=== PATIENT | female | born 1990 | race Caucasian/White ===

== ENCOUNTER 2020-06-27 14:55 | Inpatient (IN) | payer OTHER ==
[2020-06-27] MEDS ORDERED: Ibuprofen 800 MG TAB PO PRN (15:45)
[2020-06-27] MEDS ORDERED: Lactated Ringer's 1,000 ML IV SCH ×2 (15:45)
[2020-06-27] MEDS ORDERED: Acetaminophen 500 MG TAB PO PRN (15:45)
[2020-06-27] MEDS ORDERED: Butorphanol Tartrate 1 MG/ML VIAL SLOW IVP PRN (15:45)
[2020-06-27] MEDS ORDERED: Ondansetron PF 4 MG/2 ML Vial IVP PRN ×2 (15:45→22:17)
[2020-06-27] MEDS ORDERED: Promethazine HCl 25 MG/ML VIAL IM PRN (15:45)
[2020-06-27] MEDS ORDERED: HYDROcodone/Acetaminophen 5/325 mg Tablet PO PRN ×2 (15:45)
[2020-06-27] MEDS ORDERED: Lidocaine 1% (PF) 30 ML VIAL SC PRN (15:45)
[2020-06-27] MEDS ORDERED: hydrALAZINE 20 MG/ML VIAL SLOW IVP PRN ×2 (15:45→22:17)
[2020-06-27 16:21] VITALS: BMI 32.4
[2020-06-27 16:54] LABS: Amphetamine Detected (NotDetected); Barbiturates Screen Not Detected (NotDetected); Benzodiazepine Screen Not Detected (NotDetected); Cocaine Metabolite Screen Not Detected (NotDetected); Methadone Not Detected (NotDetected); Methamphetamine Detected (NotDetected); Opiate Screen Not Detected (NotDetected); Oxycodone Screen Not Detected (NotDetected); Phencyclidine (PCP) Not Detected (NotDetected); THC/Cannabinoid Screen Not Detected (NotDetected); Tricyclic Screen Not Detected (NotDetected)
[2020-06-27 16:59] LABS: Hemoglobin 9.9 g/dL (12.0-15.5); Mean Corpuscular HGB CONC 32.6 g/dL (32.0-36.0); Mean Corpuscular Hemoglobin 26.8 pg (27.0-33.0); Mean Corpuscular Volume 82.4 fl (81.6-98.3); Mean Platelet Volume 11.4 fl (7.4-10.4); Platelet Count 318 10x3/uL (150-450); RBC Distribution Width 13.2 % (11.5-14.5); Red Blood Cell (RBC) Count 3.69 10x6/uL (3.90-5.03)
[2020-06-27 17:16] LABS: Syphilis Antibody Nonreactive (Nonreactive); Syphilis Antibody Index 0.01 S/CO (<1.00 Non-Reactive)
[2020-06-27] MEDS ORDERED: Fentanyl 4 mcg/Bup 0.1% Cadd 0 ML ONE (20:08)
[2020-06-27] MEDS: Butorphanol Tartrate 1 MG/ML VIAL ONE ×2 (20:30→20:31)
[2020-06-27] MEDS: NS w/ Oxytocin 30 units 500 ML IV PRN ×2 (20:31→21:02)
[2020-06-27] MEDS ORDERED: Benzocaine-Menthol 82.5 ML CAN TOP PRN (22:17)
[2020-06-27] MEDS ORDERED: NS / Oxytocin 40 units/1000ml 1,000 ML IV SCH (22:17)
[2020-06-27] MEDS ORDERED: Bisacodyl 10 MG SUPP PR PRN (22:17)
[2020-06-27] MEDS ORDERED: Misoprostol 200 MCG TAB VAG PRN (22:17)
[2020-06-27] MEDS ORDERED: Preparation H Ointment 28 GM TUBE PR PRN (22:17)
[2020-06-27] MEDS ORDERED: Milk Of Magnesia 30 ML UDCUP PO PRN (22:17)
[2020-06-27] MEDS ORDERED: diphenhydrAMINE 25 MG CAP PO PRN (22:17)
[2020-06-27] MEDS ORDERED: Docusate Calcium (SURFAK) 240 MG CAP PO SCH (22:30)
[2020-06-27] MEDS ORDERED: Ibuprofen 800 MG TAB PO SCH (22:30)
[2020-06-27] MEDS ORDERED: NS w/ Oxytocin 30 units 500 ML IV SCH (22:30)
[2020-06-28 01:00] LABS: SARS-CoV-2 PCR by NAA Not Detected (NotDetected)
[2020-06-28 01:08] LABS: HBSAB Concentration 688.49 mIU/mL; Hep B Surf AB Reactive (NonReactive)
[2020-06-28] MEDS: Ibuprofen 800 MG TAB PO SCH ×2 (06:15→13:18)
[2020-06-28 07:56] LABS: Hep B Surf Ag Non-Reactive S/CO (NonReactive)
[2020-06-28 07:59] LABS: HBSAg Index 0.18 S/CO (0-0.99)
[2020-06-28] MEDS: Ferrous Sulfate 325 MG TAB PO SCH ×2 (08:39→18:16)
[2020-06-28] MEDS ORDERED: Docusate Calcium (SURFAK) 240 MG CAP PO SCH (09:00)
[2020-06-28] MEDS ORDERED: Adacel (T-DAP) 0.5 ML SYRINGE IM ONE (09:00)
[2020-06-28] MEDS ORDERED: Prenatal Vitamin 1 TAB PO SCH (09:00)
[2020-06-28 11:54] VITALS: TEMP 98
[2020-06-28 18:17] VITALS: BP 139/86
== END 2020-06-28 20:15 | disposition home or self-care (01) | DRG 807 ==
LOC: CSHLD/OP 14:55 → CSHLD 17:35 → CSHPP 23:07 → UNDODISIN 06-28 20:15
PROVIDERS: ADMIT Obstetrics & Gynecology; ATTEND Obstetrics & Gynecology
PROC: 10E0XZZ Delivery of Products of Conception, External Approach (ICD-10-PCS; principal; 2020-06-27)
PROC: 0HQ9XZZ Repair Perineum Skin, External Approach (ICD-10-PCS; 2020-06-27)
DX: O77.0 Labor and delivery complicated by meconium in amniotic fluid (principal); Z37.0 Single live birth; Z20.822 Contact with and (suspected) exposure to COVID-19; O70.0 First degree perineal laceration during delivery; Z3A.39 39 weeks gestation of pregnancy
CPT/HCPCS: 36415; 80306; 85014; 85018; 85027; 86706; 86762; 86780; 86850; 86900; 86901; 87340; 87635; 88307; 99285; J0595; J2590; U0003; U0005

== ENCOUNTER 2021-10-22 14:38 | Emergency (ER) | payer OTHER ==
[2021-10-22] MEDS ORDERED: Ibuprofen 200 MG TAB ONE (15:04)
[2021-10-22] MEDS ORDERED: Metoclopramide HCl 10 MG/2 ML VIAL ONE (16:09)
== END 2021-10-22 17:43 | disposition home or self-care (01) ==
LOC: CSHERS 14:38
DX: U07.1 COVID-19 (principal); F17.210 Nicotine dependence, cigarettes, uncomplicated
CPT/HCPCS: 70450; 96365; J2765; U0003; U0005

== ENCOUNTER 2022-08-08 17:33 | Emergency (ER) | payer OTHER ==
[2022-08-08] MEDS ORDERED: Dexamethasone 10 MG/ML VIAL ONE (18:43)
== END 2022-08-08 18:44 | disposition home or self-care (01) ==
LOC: CSHERS 17:33
DX: J02.0 Streptococcal pharyngitis (principal); F17.200 Nicotine dependence, unspecified, uncomplicated
CPT/HCPCS: 99283; J1100